=== PATIENT | male | born 1995 | race African-American/Black ===

== ENCOUNTER 2019-04-18 14:38 | Emergency (ER) | payer MEDICAID ==
[~2019-04-18] VITALS: Ht 177.8 cm; Wt 63.0 kg
[2019-04-18] MEDS ORDERED: ketorolac tromethamine 15mg/ml inj. IM ONE (16:10)
[2019-04-18 16:26] VITALS: BP 118/73
== END 2019-04-18 16:28 | disposition home or self-care (01) ==
LOC: ER 14:39
DX: R07.89 Other chest pain (principal)
CPT/HCPCS: 71045; 93005; 96372; 99283; J1885

== ENCOUNTER 2019-11-23 15:08 | Outpatient (CLI) | payer MEDICAID | END 2019-11-23 23:59 | disposition home or self-care (01) | LOC: RAD 15:08 | DX: K13.79 Other lesions of oral mucosa (principal); R13.12 Dysphagia, oropharyngeal phase; Q38.8 Other congenital malformations of pharynx | CPT/HCPCS: 74230 ==